=== PATIENT | male | born 1935 | race Caucasian/White ===

== ENCOUNTER → 2018-09-05 | Outpatient (CLI) | payer MEDICARE | END | disposition home or self-care (01) | LOC: RAH 11:10 | PROVIDERS: ATTEND Urology | DX: N28.1 Cyst of kidney, acquired (principal); C61 Malignant neoplasm of prostate | CPT/HCPCS: 76770 ==

== ENCOUNTER 2019-02-26 06:11 | Day surgery (SDC) | payer MEDICARE ==
[2019-02-22 15:13] LABS: BASOPHILS % (AUTO) 0.4 % (0.0-5.0); EOSINOPHILS % (AUTO) 1.9 % (0.0-8.0); HEMATOCRIT 41.1 % (42-54); LYMPHOCYTES % (AUTO) 20.3 % (21.0-51.0); MEAN CORPUSCULAR HEMOGLOBIN 28.4 pg (27.0-33.0); MEAN CORPUSCULAR HGB CONC 32.5 g/dL (32.0-36.0); MEAN CORPUSCULAR VOLUME 87.3 fL (79-99); MONOCYTES % (AUTO) 10.5 % (3.0-13.0); NEUTROPHILS % (AUTO) 66.9 % (40.0-77.0); PLATELET COUNT (AUTO) 171 K/uL (130-400); RED BLOOD CELL COUNT(AUTO) 4.71 MIL/uL (4.50-6.20); WHITE BLOOD COUNT (AUTO) 7.3 K/uL (4.8-10.8)
[2019-02-22 15:18] VITALS: BP 150/75
[2019-02-22 15:27] LABS: CREATININE 1.5 mg/dL (0.5-1.5); POTASSIUM 4.9 mmol/L (3.5-5.1)
--- NOTE | 2019-02-25 11:56 | NUR ---
EKG EKG REPORTED TO DR. TOVAR. NO FURTHER ORDERS GIVEN, MAY PROCEED WITH PLANNED PROCEDURE.
--- NOTE | 2019-02-25 11:58 | NUR ---
SPOKE WITH RENE MENDEZ AT DR. HANKINS, OFFICE TO REPORT ABNORMAL LABS. RENE STATED SHE WILL MAKE DR. HANKINS OF ABNORMAL LABS AND CALL US BACK WITH A RESPONSE.
--- NOTE | 2019-02-25 12:10 | NUR ---
PER DR. HANKINS ANETHESIA IS TO BE CALLED WITH ABNORMAL LABS .
--- NOTE | 2019-02-25 12:11 | NUR ---
PER DR. LEWIS ANESTHESIA ABNORMAL LABS ARE OK AND TO PROCEED WITH PROCEDURE TOMORROW.
[~2019-02-26] VITALS: Ht 168.9 cm; Wt 116.6 kg
[2019-02-26] VITALS (17 sets, daily range): BP systolic 75–127; BP diastolic 35–81
[~2019-02-26 06:11] MED LIST: ASPI-555 PO; BETA1TAB18 PO; BICA50TA7 PO; BISA-72 PO; FISH1CAP20 PO; FURO20TA4 PO; GABA-531 PO; HYDR-4068 PO; ISOS30TA6 PO; LANS30CA53 PO; LEUP1KIT SQ; LISI2.5T2 PO; LUTE20CA PO; MAGN500T20 PO; METO25TA6 PO; NORT25CA3 PO; ROSU10TA28 PO; SUCR1TAB2 PO; [UNRECOGNIZED DRUG - OTHER] TD
[2019-02-26] MEDS ORDERED: BACITRACIN 28.4 GM OINT TP ONE (06:54)
[2019-02-26] MEDS ORDERED: LIDOCAINE 1%-EPI 1:100,000 20 ML VIAL IJ ONE (06:55)
--- NOTE | 2019-02-26 07:00 | NUR ---
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
--- NOTE | 2019-02-26 07:08 | NUR ---
RESPIRATORY: O2 SATURATION AT 93 - 95% IN ROOM AIR. PATIENT DOES HAVE SLEEP APNEA. NOTIFIED ELLIOTT LOPEZ CRNA OF O2 SATURATION AND ORDERS GIVEN
--- NOTE | 2019-02-26 07:10 | NUR ---
RESPIRATORY: O2 AT 2L/NC ORDERED PER ELLIOTT LOPEZ PIPELINES SUPERVISOR. O2 SHOWING AT 98%
[2019-02-26] MEDS ORDERED: LACTATED RINGERS 1000ML 1,000 ML IV ONE (07:26)
[2019-02-26] MEDS ORDERED: DEXAMETHASONE SOD PHOSPHATE 10MG/ML 1ML VIAL ONE (07:42)
[2019-02-26] MEDS ORDERED: LIDOCAINE PF 2% 5ML ABBOJECT ONE (07:42)
[2019-02-26] MEDS ORDERED: MIDAZOLAM HCL 1 MG/ML 2ML VIAL ONE (07:43)
[2019-02-26] MEDS ORDERED: FENTANYL CITRATE PF 50 MCG/1 ML 2ML VIAL ONE (07:43)
[2019-02-26] MEDS ORDERED: ONDANSETRON HCL 4 MG/2 ML VIAL ONE (07:43)
[2019-02-26] MEDS ORDERED: ROCURONIUM 10MG/1ML SYR 10 MG/ML ML ONE (07:43)
[2019-02-26] MEDS ORDERED: PROPOFOL 10 MG/ML 20ML VIAL IV ONE (07:43)
[2019-02-26] MEDS ORDERED: EPHEDRINE SULFATE 50 MG/ML AMPULE ONE (08:50)
--- NOTE | 2019-02-26 10:30 | NUR ---
CALLED DOCTOR HANKINS OFFICE TO ASK ABOUT WOUND CARE INSTRUCTIONS FOR DISCHARGE PURPOSES, SPOKE TO RENE MENDEZ CNA AND SHE EXPLAINED TO HAVE PT KEEP DRESSING DRY AND INTACT AND COVER FOR SHOWERS, THAN FOLLOW UP WITH DOCTOR HANKINS SCHEDULED, I DISCUSSED WITH PATIENT THE INSTRUCTIONS AND S/S OF INFECTION. ADVISED PT TO CALL THE DOCTOR IF ANY CONCERNS.
== END 2019-02-26 11:00 | disposition home or self-care (01) ==
LOC: SUH 06:11 → DAH 06:11 → SUH 11:00
PROVIDERS: ATTEND Otolaryngology Plastic Surgery within the Head & Neck
DX: R22.1 Localized swelling, mass and lump, neck (principal); C43.4 Malignant melanoma of scalp and neck; I11.0 Hypertensive heart disease with heart failure; I50.9 Heart failure, unspecified; I25.10 Atherosclerotic heart disease of native coronary artery without angina pectoris; G47.30 Sleep apnea, unspecified; E66.01 Morbid (severe) obesity due to excess calories; Z88.8 Allergy status to other drugs, medicaments and biological substances; Z90.49 Acquired absence of other specified parts of digestive tract; Z96.653 Presence of artificial knee joint, bilateral; Z98.890 Other specified postprocedural states; Z95.5 Presence of coronary angioplasty implant and graft; Z68.41 Body mass index [BMI] 40.0-44.9, adult; Z79.899 Other long term (current) drug therapy; Z79.82 Long term (current) use of aspirin; Z87.891 Personal history of nicotine dependence; Z82.49 Family history of ischemic heart disease and other diseases of the circulatory system
CPT/HCPCS: 11626; 12042; 36415; 80048; 85025; 88305; 88331; 88332; 93005; A4215; A4221; A4222; A4223; A4452; A4606; A4615; A4649; A4663; A6260; A6446; J1100; J2001; J2250; J2405; J2704; J3010; J3490 ×2; J7120

== ENCOUNTER → 2019-04-19 | Outpatient (CLI) | payer MEDICARE ==
--- NOTE | 2019-04-19 23:01 | NUR ---
HYDROCODONE 5 X DAY,[id number] MG 1X DAY,LISINOPRIL 2.5 MG X 1 X,FUROSEMIDE 20 MG X 1,PREVACID 30 MG X 2,ISOSORBIDE MONONITRATE 30 MG X ER X 1,ROSUVASTATIN 10 MG X 1,SUCRALFATE 1GM X 1 ,NORTRIPTYLINE 25 MG X1,GABAPENTIN 300MG X 5 2 MORN.1NOON.2NIGHT ,OCUVITE EYE VIT. X 1,LUTEIN 20 MG X1,FISH OIL 1000 MG X 1,SKY X2,DULCOLAX X1 Addendum: 04/19/19 at 2330 by SAGAR HUERTA Amended: Links added.
== END | disposition home or self-care (01) ==
LOC: SLP 20:27
PROVIDERS: ATTEND Internal Medicine Cardiovascular Disease
DX: G47.33 Obstructive sleep apnea (adult) (pediatric) (principal)
CPT/HCPCS: 95810

== ENCOUNTER → 2019-04-26 | Outpatient (CLI) | payer MEDICARE | END | disposition home or self-care (01) | LOC: SLP 20:40 | PROVIDERS: ATTEND Internal Medicine Cardiovascular Disease | DX: G47.33 Obstructive sleep apnea (adult) (pediatric) (principal) | CPT/HCPCS: 95811 ==

== ENCOUNTER → 2020-07-20 | Outpatient (CLI) | payer MEDICARE ==
[~2020-07-20] VITALS: Ht 170.2 cm; Wt 122.9 kg
[~2020-07-20] MED LIST changes: -ASPI-555 PO; +ASPI-556 PO; -ISOS30TA6 PO; +ISOS30TA92 PO; +REGADENOSON 0.4 MG/5 ML PF SYG IVP SCH
== END | disposition home or self-care (01) ==
LOC: SHCH 08:55
PROVIDERS: ATTEND Internal Medicine Cardiovascular Disease
DX: I25.10 Atherosclerotic heart disease of native coronary artery without angina pectoris (principal)
CPT/HCPCS: 78452; 93017; 96374; A9500 ×2

== ENCOUNTER → 2020-10-28 | Outpatient (CLI) | payer MEDICARE ==
[~2020-10-28] MED LIST changes: -REGADENOSON 0.4 MG/5 ML PF SYG IVP SCH
== END | disposition home or self-care (01) ==
LOC: RAH 12:42
PROVIDERS: ATTEND Family Medicine
DX: C61 Malignant neoplasm of prostate (principal); Z96.653 Presence of artificial knee joint, bilateral
CPT/HCPCS: 78306; A9503

== ENCOUNTER → 2021-05-04 | Outpatient (CLI) | payer MEDICARE ==
[~2021-05-04] MED LIST changes: +LISI2.5T13 PO; -LISI2.5T2 PO
== END | disposition home or self-care (01) ==
LOC: SHCH 14:52
PROVIDERS: ATTEND Internal Medicine Cardiovascular Disease
DX: E85.9 Amyloidosis, unspecified (principal); I11.9 Hypertensive heart disease without heart failure; E78.5 Hyperlipidemia, unspecified; Z95.1 Presence of aortocoronary bypass graft
CPT/HCPCS: 93306

== ENCOUNTER → 2023-08-29 | Outpatient (CLI) | payer MEDICARE | END | disposition home or self-care (01) | LOC: RAH 09:02 | PROVIDERS: ATTEND Internal Medicine Cardiovascular Disease | DX: N28.1 Cyst of kidney, acquired (principal); R10.84 Generalized abdominal pain; Z90.49 Acquired absence of other specified parts of digestive tract | CPT/HCPCS: 76700 ==

== ENCOUNTER 2023-10-12 13:52 | Emergency (ER) | payer MEDICARE ==
[~2023-10-12] VITALS: Ht 180.3 cm; Wt 127.0 kg
[~2023-10-12 13:52] MED LIST changes: -ROSU10TA28 PO; +ROSU10TA72 PO
[2023-10-12 15:38] LABS: APPEARANCE,URINE CLEAR (CLEAR); BILIRUBIN,URINE NEGATIVE (NEGATIVE); COLOR,URINE YELLOW (YELLOW); GLUCOSE, URINE (UA) NEGATIVE (NEGATIVE); KETONES,URINE NEGATIVE (NEGATIVE); LEUKOCYTE ESTERASE ,URINE NEGATIVE Leu/uL (NEGATIVE); NITRATE,URINE NEGATIVE (NEGATIVE); OCCULT BLOOD,URINE NEGATIVE (NEGATIVE); PH,URINE 5.5 (5.0-8.0); PROTEIN,URINE 30 mg/dL (NEGATIVE); UROBILINOGEN,URINE 0.2 mg/dL (0.2-1.0)
[2023-10-12 15:40] LABS: ADD UA MICROSCOPIC YES
[2023-10-12 15:42] LABS: MUCUS,URINE RARE LPF (None Seen); SQUAMOUS EPITHELIAL CELL,UR RARE /HPF (0-2)
[2023-10-12 15:44] LABS: BASOPHILS # (AUTO) 0.03 K/uL (0.00-0.20); BASOPHILS % (AUTO) 0.3 % (0.0-5.0); EOSINOPHILS # (AUTO) 0.08 K/uL (0.00-0.70); EOSINOPHILS % (AUTO) 0.7 % (0.0-8.0); HEMATOCRIT 31.7 % (42-54); IMMATURE GRANULOCYTE ABSOLUTE 0.08 K/uL (0-1); LYMPHOCYTES % (AUTO) 8.5 % (21.0-51.0); MEAN CORPUSCULAR HEMOGLOBIN 29.9 pg (27.0-33.0); MEAN CORPUSCULAR HGB CONC 32.2 g/dL (32.0-36.0); MONOCYTES # (AUTO) 1.2 K/uL (0.1-1.0); MONOCYTES % (AUTO) 10.2 % (3.0-13.0); NEUTROPHILS # (AUTO) 9.5 K/uL (1.8-7.7); NEUTROPHILS % (AUTO) 79.6 % (40.0-77.0); PLATELET COUNT (AUTO) 180 K/uL (130-400); RED BLOOD CELL COUNT(AUTO) 3.41 MIL/uL (4.50-6.20); RED CELL DISTRIBUTION WIDTH 14.5 % (11.0-15.5)
[2023-10-12 15:54] LABS: CREATININE 1.8 mg/dL (0.5-1.3); POTASSIUM 4.2 mmol/L (3.5-5.1)
[2023-10-12 16:03] LABS: ALBUMIN 2.4 g/dL (3.5-5.0); BILIRUBIN,TOTAL 0.3 mg/dL (0.2-1.0); TOTAL PROTEIN, SERUM 6.6 g/dL (6.0-8.3)
[2023-10-12] MEDS: HYDROCODONE/ACETAMINOPHEN 10/325 MG TAB PO ONE (18:18)
[2023-10-12 23:44] VITALS: BP 120/67; PULSE 66; RESP 20; O2SAT 98
== END 2023-10-13 01:18 | disposition short-term general hospital (02) ==
LOC: EDH 13:52
DX: I21.4 Non-ST elevation (NSTEMI) myocardial infarction (principal); R55 Syncope and collapse; I11.9 Hypertensive heart disease without heart failure; J44.9 Chronic obstructive pulmonary disease, unspecified; Z79.82 Long term (current) use of aspirin; Z79.899 Other long term (current) drug therapy; Z88.5 Allergy status to narcotic agent
CPT/HCPCS: 36415; 70450; 71045; 72125; 80053; 81001; 82550; 83605; 84484; 85025; 87040; 87086; 93005